=== PATIENT | female | born 1955 | race Two or more races ===

== ENCOUNTER → 2017-12-25 | Outpatient (CLI) | payer OTHER | END | disposition home or self-care (01) | LOC: MAMO 607 11:45 → MAMO-SONO 12:11 | DX: Z12.31 Encounter for screening mammogram for malignant neoplasm of breast (principal); Z87.898 Personal history of other specified conditions; D48.61 Neoplasm of uncertain behavior of right breast; D48.62 Neoplasm of uncertain behavior of left breast ==

== ENCOUNTER 2018-01-08 09:34 | Outpatient (CLI) | payer OTHER | END 2018-01-08 09:45 | disposition home or self-care (01) | LOC: SONOGRAMA 09:34 → MAMO-SONO 10:15 | DX: K29.00 Acute gastritis without bleeding (principal); K30 Functional dyspepsia ==

== ENCOUNTER → 2019-09-02 | Outpatient (CLI) | payer OTHER | END | disposition home or self-care (01) | LOC: RAD 11:47 | DX: S82.855A Nondisplaced trimalleolar fracture of left lower leg, initial encounter for closed fracture (principal) ==

== ENCOUNTER → 2019-09-30 10:22 | Outpatient (CLI) | payer OTHER | END | disposition home or self-care (01) | LOC: LAB 10:22 | DX: E56.1 Deficiency of vitamin K (principal) ==

== ENCOUNTER 2019-10-08 09:59 | Outpatient (CLI) | payer OTHER | END 2019-10-08 10:20 | disposition home or self-care (01) | LOC: RAD 09:59 | DX: S82.855D Nondisplaced trimalleolar fracture of left lower leg, subsequent encounter for closed fracture with routine healing (principal) ==